=== PATIENT | male | born 1985 | race Caucasian/White ===

== ENCOUNTER 2017-12-10 06:44 | Inpatient (IN) | payer BC ==
[2017-12-10] MEDS ORDERED: Sodium Chloride 0.9% 1,000 ML IV ONE ×2 (07:24→13:15)
[2017-12-10] MEDS ORDERED: Dextrose 5%-Lactated Ringers 1,000 ML IV SCH (07:30)
[2017-12-10] MEDS ORDERED: Iopamidol 755 Mg/ML 100 ML Bottle IV ONE (09:08)
[2017-12-10] MEDS ORDERED: Diatrizoate Meglumine/Diatrizoate Sodium 37% 30 ML Bottle PO ONE (09:08)
[2017-12-10] MEDS ORDERED: Ibuprofen 600 MG Tab PO PRN (10:21)
[2017-12-10] MEDS ORDERED: Acetaminophen 325 MG Tab PO PRN (10:21)
[2017-12-10] MEDS ORDERED: Ondansetron 4 MG/2 ML SDV IV PRN (10:21)
[2017-12-10] MEDS ORDERED: Ondansetron 4 MG Tab.DIS PO PRN (10:21)
--- NOTE | 2017-12-10 11:08 | CT ---
INDICATION: 30-pound weight loss in one week, diarrhea x4-[address] ABDOMEN AND PELVIS WITH CONTRAST: Spiral 2.5-mm axial sections were obtained through the abdomen and pelvis with approximately 100 mL Isovue-370 at 1.5 mL per second, with sagittal and coronal reconstructions, 12/10/2017. No comparison study was available. Total Exam DLP = 1554.23 mGy-cm. The lower lung goddard and pleural spaces visualized appeared normal. Tiny low-density area in the right lobe of the liver, axial image #56, is of questionable significance. It could represent a small hemangioma and could be reexamined at a later date for confirmation of stability. The liver and gallbladder, adrenal glands, kidneys, spleen, and pancreas appeared essentially normal. A small nodular density at the hilum of the spleen - tail of the pancreas, most likely represents a splenule. Small pancreatic tumor is difficult to entirely exclude, but is felt to be less likely. A follow-up CT in 3 months would be confirmatory of stability of this probable splenule. Epigastric, retroperitoneal, and fairly extensive mesenteric lymphadenopathy is noted. Thickening of the wall of the colon is noted throughout, with a loss of haustration that appears fairly severe throughout the colon. No obstruction of bowel was seen. No free air was noted intraperitoneally. The appendix was well visualized on axial images #121 through #145, and appeared normal. No other organomegaly, mass lesions, or free fluid collections were identified. The prostate and urinary bladder were unremarkable. No retroperitoneal mass was seen. IMPRESSION: Findings are compatible with colitis, involving the entire colon, which may be on the basis of an infective process. Ulcerative colitis would be another possibility. Findings should be correlated clinically. There is a significant degree of mesenteric and to a lesser extent retroperitoneal lymphadenopathy. CT PELVIS: Examination of the pelvis was obtained by CT, as noted above, and revealed evidence of mesenteric lymphadenopathy and colitis with loss of haustration and thickening of the wall of the visualized colon. No other organomegaly, mass lesions, or free fluid collections were identified in the abdomen or pelvis. Report was called to Dr. Lopez at 1000 hours, 12/10/2017. [facility]
--- NOTE | 2017-12-10 11:21 | CR ---
INDICATION: 30-pound weight loss, one week of fever. Diarrhea x10 days. CHEST: PA and lateral views of the chest were obtained 12/10/2017 and revealed the heart, mediastinum, and bony thorax to be unremarkable. An active infiltrate or effusion was not identified. IMPRESSION: No active disease. MTDD
[2017-12-10] MEDS: Sodium Chloride 0.9% 1,000 ML IV SCH ×2 (11:57→18:03)
[2017-12-10] MEDS ORDERED: Sodium Chloride 0.9% 10 ML Syringe FLUSH PRN (11:59)
--- NOTE | 2017-12-10 12:57 | PCM.HP ---
H&P History of Present Illness - General Date of Service: 12/10/17 Source of Information: Patient History Limitations: Reports: No Limitations - History of Present Illness Initial Comments - Free Text/Narative: Is a 32-year-old male patient this 1 week history of fevers, chills, body aches , fatigue not sleeping at night. He is a little vomiting. Over the last month he says some abdominal cramping with some blood diarrhea. He says he had bloody diarrhea couple years ago for 3-4 weeks and then it went away. He's had no problems up until now. He denies any recent antibiotic use, travel outside the country or infectious exposures. No family history colitis. He does have a little bit of a cough but no sore throat. mid abdomen Pain Score (Numeric/FACES): 5 denies pain as of the moment Pain Score (Numeric/FACES): 0 - Related Data Allergies/Adverse Reactions: Allergies Allergy/AdvReac Type Severity Reaction Status Date / Time No Known Allergies Allergy Verified 12/10/17 07:01 Home Medications: Home Meds NK [No Known Home Meds] 12/10/17 [History] Past Medical History - Past Health History Medical/Surgical History: Denies Medical/Surgical History Gastrointestinal History: Reports: GI Bleed - Past Surgical History GI Surgical History: Reports: None Social & Family History - Family History Family Medical History: Noncontributory - Tobacco Use Smoking Status *Q: Never Smoker Second Hand Smoke Exposure: Yes - Caffeine Use Caffeine Use: Reports: Tea Other Caffeine Use: 3 cups - Alcohol Use Days Per Week of Alcohol Use: 1 Number of Drinks Per Day: 1 Total Drinks Per Week: 1 - Recreational Drug Use Recreational Drug Use: No H&P Review of Systems - Review of Systems: Review Of Systems: See Below General: Reports: Fever, Chills, Malaise, Weakness HEENT: Reports: No Symptoms Pulmonary: Reports: Cough. Denies: Shortness of Breath, Hemoptysis Cardiovascular: Reports: No Symptoms Gastrointestinal: Reports: Abdominal Pain, Diarrhea, Hematochezia Genitourinary: Reports: No Symptoms Musculoskeletal: Reports: Muscle Pain. Denies: Joint Pain Skin: Reports: No Symptoms Psychiatric: Reports: No Symptoms Neurological: Reports: No Symptoms Hematologic/Lymphatic: Reports: No Symptoms Immunologic: Reports: No Symptoms Exam - Exam Exam: See Below - Vital Signs Vital Signs: Last Vital Signs Temp 99.3 F 12/10/17 11:25 Pulse 120 H 12/10/17 08:55 Resp 18 12/10/17 11:25 BP 125/73 12/10/17 11:25 Pulse Ox 99 12/10/17 11:25 Weight: 218 lb 3.2 oz - Exam General: Alert, Oriented, Cooperative HEENT: Hearing Intact, Posterior Pharynx Clear Neck: Supple, Trachea Midline, Carotid Bruit. No: Lymphadenopathy Lungs: Clear to Auscultation, Normal Respiratory Effort. No: Crackles, Rales, Rhonchi Cardiovascular: Regular Rate, Regular Rhythm, Tachycardia. No: Systolic Murmur , Diastolic Murmur GI/Abdominal Exam: Normal Bowel Sounds, Soft, Non-Tender, Distended (Mild) Back Exam: Normal Inspection, Full Range of Motion Extremities: Normal Inspection, Non-Tender, No Pedal Edema Skin: Warm, Dry, Intact Neurological: Normal Speech Neuro Extensive - Mental Status: Alert, Oriented x3, Normal Mood/Affect, Normal Cognition, Memory Intact Psychiatric: Alert, Normal Affect, Normal Mood - Patient Data Result Diagrams: 12/10/17 07:45 12/10/17 07:45 *Q Meaningful Use (ADM) - VTE *Q VTE Criteria *Q: - Stroke *Q Stroke Criteria *Q: - AMI *Q AMI Criteria *Q: - Problem List (1) Viral syndrome SNOMED Code(s): 54603716 ICD Code: B34.9 - VIRAL INFECTION, UNSPECIFIED Status: Acute Current Visit: Yes (2) Colitis SNOMED Code(s): 59709641 ICD Code: K52.9 - NONINFECTIVE GASTROENTERITIS AND COLITIS, UNSPECIFIED Status: Acute Current Visit: Yes (3) Dehydration SNOMED Code(s): 17458051 ICD Code: E86.0 - DEHYDRATION Status: Acute Current Visit: Yes (4) Hyponatremia SNOMED Code(s): 31849518 ICD Code: E87.1 - HYPO-OSMOLALITY AND HYPONATREMIA Status: Acute Current Visit: Yes (5) Renal failure SNOMED Code(s): 52756212 ICD Code: N19 - UNSPECIFIED KIDNEY FAILURE Status: Acute Current Visit: Yes Qualifiers: Chronic kidney disease stage: stage 3 (moderate) Problem List Initiated/Reviewed/Updated: Yes Orders Last 24hrs: Active Orders 24 hr Category Date Time Status Sodium Chloride 0.9% [Saline Flush] Med 12/10/17 11:59 Active 10 ml FLUSH ASDIRECTED PRN Medication Orders Acetaminophen (Tylenol) 650 mg PO Q4H PRN PRN Reason: Pain (Mild 1-3)/fever Dextrose/Lactated Ringer's (Dextrose 5%-Lactated Ringers) 1,000 mls @ 999 mls/ hr IV ASDIRECTED [facility] Last Admin: 12/10/17 08:38 Dose: 999 mls/hr Sodium Chloride (Normal Saline) 1,000 mls @ 150 mls/hr IV ASDIRECTED [facility] Last Admin: 12/10/17 11:57 Dose: 150 mls/hr Ibuprofen (Motrin) 600 mg PO Q6H PRN PRN Reason: Pain (mild 1-3) Ondansetron HCl (Zofran) 4 mg IV Q4H PRN PRN Reason: Nausea/Vomiting Ondansetron HCl (Zofran Odt) 4 mg PO Q4H PRN PRN Reason: nausea, able to take PO Sodium Chloride (Saline Flush) 10 ml FLUSH ASDIRECTED PRN PRN Reason: Keep Vein Open Assessment/Plan Comment:: 1. I reviewed his labs, CT of abdomen and pelvis and chest x-ray. 2. Fluid resuscitation. 3. Guaiac stools. 4. Influenza swab. 5. Consult Dr. Vance for surgery regarding colitis on colonoscopy and bloody stools. 6. Repeat CBC 4 PM today to make sure his hemoglobin is not dropping. 7. Up ad gerard. 8. Regular diet for now.
[2017-12-10] MEDS: methylPREDNISolone Sodium Succinate 125 MG/2 ML SDV IVPUSH SCH (18:43)
[2017-12-11] MEDS: Sodium Chloride 0.9% 1,000 ML IV SCH ×2 (00:50→07:36)
[2017-12-11] MEDS: methylPREDNISolone Sodium Succinate 125 MG/2 ML SDV IVPUSH SCH ×2 (04:47→17:35)
--- NOTE | 2017-12-11 08:43 | CONS ---
DATE OF CONSULTATION: 12/10/2017 HISTORY OF PRESENT ILLNESS: This 32-year-old gentleman is seen in consultation from Dr. Vargas for evaluation of one-month history of bloody diarrhea. This is not associated with any abdominal pain. He has had a couple episodes of emesis in the last week. He was admitted to the hospital earlier today for body aches, fatigue, some fevers, and chills. He underwent a CT scan of the abdomen and pelvis, which shows evidence of diffuse colitis. Laboratory evaluation showed that he was anemic at 10.6 on admission and is down to 8.9 with hydration. He has had approximately five or six loose bloody stools since hospitalized. The patient lives at home and states he has been going to work for the past month. His diet at home has been some soft foods and fruits. He has had a 30- pound weight loss. He denies any urinary difficulties. The patient had a similar episode two or three years ago of bloody diarrhea that lasted about a month and was self-limited. He did not seek medical attention at that time. He is not aware of any family history of ulcerative colitis, Crohn's disease, or other colon problems. Review of his labs today showed him to be anemic as noted above. C diff is negative. PHYSICAL EXAMINATION: GENERAL: A pleasant, young male, in no distress. VITAL SIGNS: Vitals are reviewed and within normal limits. He is slightly tachycardic. ABDOMEN: Completely soft and nontender. There are no masses or hernias. ASSESSMENT: Colitis with hematochezia and anemia. PLAN: Findings were reviewed with the patient and Dr. Vargas. I am suspicious that he could have inflammatory bowel disease and would recommend starting him on steroids. He will need a colonoscopy, we will give him a couple of days to rehydrate before doing that. I will follow him while hospitalized. /[id number] JUAN/NAYELI
--- NOTE | 2017-12-11 09:32 | PCM.PN ---
- General Info Date of Service: 12/11/17 Admission Dx/Problem (Free Text): Patient states his fevers, chills and abdominal pain are gone. He still have an some diarrhea stools with bright red blood. - Patient Data Vitals - Most Recent: Last Vital Signs Temp 98.7 F 12/11/17 05:30 Pulse 96 12/11/17 01:00 Resp 18 12/11/17 01:00 BP 101/60 12/11/17 01:00 Pulse Ox 97 12/11/17 01:00 Weight - Most Recent: 218 lb 3.2 oz I&O - Last 24 Hours: Intake & Output 12/10/17 12/11/17 12/11/17 22:59 06:59 14:59 Intake Total 2065 964 Output Total 550 1000 Balance 1515 -36 Lab Results Last 24 Hours: Laboratory Results - last 24 hr 12/10/17 12/11/17 12/11/17 Range/Units 16:15 06:15 06:15 WBC 8.7 7.6 (4.5-12.0) X10-3/uL RBC 3.84 L 3.71 L (4.30-5.75) x10(6)uL Hgb 8.9 L 8.5 L (11.5-15.5) g/dL Hct 28.0 L 27.3 L (30.0-51.3) % MCV 73.0 L 73.5 L (80-96) fL MCH 23.1 L 23.0 L (27.7-33.6) pg MCHC 31.7 L 31.3 L (32.2-35.4) g/dL RDW 14.5 14.9 (11.5-15.5) % Plt Count 456 H 411 H (125-369) X10(3)uL MPV 7.5 7.4 (7.4-10.4) fL Neut % (Auto) 70.1 (46-82) % Lymph % (Auto) 19.2 (13-37) % [place] % (Auto) 10.6 (4-12) % Eos % (Auto) 0 L (1.0-5.0) % Baso % (Auto) 0 (0-2) % Neut # (Auto) 6.1 (1.6-8.3) # Lymph # (Auto) 1.7 (0.6-5.0) # [place] # (Auto) 0.9 (0.0-1.3) # Eos # (Auto) 0.0 (0.0-0.8) # Baso # (Auto) 0.0 (0.0-0.2) # Add Manual Diff Yes Neutrophils % (Manual) 81 (46-82) % Band Neutrophils % 3 (0-6) % Lymphocytes % (Manual) 14 (13-37) % Monocytes % (Manual) 2 L (4-12) % Microcytosis Moderate H Sodium 137 (135-145) mmol/L Potassium 3.9 (3.5-5.3) mmol/L Chloride 103 D (100-110) mmol/L Carbon Dioxide 23 (21-32) mmol/L BUN 8 (7-18) mg/dL Creatinine 0.9 (0.70-1.30) mg/dL Est Cr Clr Drug Dosing 128.14 mL/min Estimated GFR (MDRD) > 60 (>60) BUN/Creatinine Ratio 8.9 L (9-20) Glucose 144 H (80-116) mg/dL Calcium 8.1 L (8.6-10.2) mg/dL Total Bilirubin 0.4 (0.1-1.3) mg/dL AST 22 D (5-25) IU/L ALT 25 (12-36) U/L Alkaline Phosphatase 56 (56-112) IU/L Total Protein 6.2 (6.0-8.0) g/dL Albumin 1.9 L (3.5-5.2) g/dL Globulin 4.3 g/dL Albumin/Globulin Ratio 0.4 Med Orders - Current: Current Medications Acetaminophen (Tylenol) 650 mg PO Q4H PRN PRN Reason: Pain (Mild 1-3)/fever Potassium Chloride/Dextrose/Sod Cl (D5 1/2 Ns W/ 20 Meq/L Kcl) 1,000 mls @ 100 mls/hr IV ASDIRECTED [facility]ER Ibuprofen (Motrin) 600 mg PO Q6H PRN PRN Reason: Pain (mild 1-3) Methylprednisolone Sodium Succinate (Solu-Medrol) 125 mg IVPUSH Q12H [facility]ENN[facility]ER Last Admin: 12/11/17 04:47 Dose: 125 mg Ondansetron HCl (Zofran) 4 mg IV Q4H PRN PRN Reason: Nausea/Vomiting Ondansetron HCl (Zofran Odt) 4 mg PO Q4H PRN PRN Reason: nausea, able to take PO Sodium Chloride (Saline Flush) 10 ml FLUSH ASDIRECTED PRN PRN Reason: Keep Vein Open Last Admin: 12/10/17 11:56 Dose: 10 ml Discontinued Medications Diatrizoate Meglum/Diatrizoate Sod (Gastrografin 37%) 30 ml PO . DIRECTED ONE Stop: 12/10/17 09:09 Last Admin: 12/10/17 09:16 Dose: 30 ml Dextrose/Lactated Ringer's (Dextrose 5%-Lactated Ringers) 1,000 mls @ 999 mls/ hr IV ASDIRECTED [facility] Last Admin: 12/10/17 08:38 Dose: 999 mls/hr Sodium Chloride (Normal Saline) 1,000 mls @ 999 mls/hr IV .BOLUS ONE Stop: 12/10/17 08:24 Last Admin: 12/10/17 07:35 Dose: 999 mls/hr Sodium Chloride (Normal Saline) 1,000 mls @ 150 mls/hr IV ASDIRECTED [facility] Last Admin: 12/11/17 07:36 Dose: 150 mls/hr Sodium Chloride (Normal Saline) 1,000 mls @ 999 mls/hr IV .BOLUS ONE Stop: 12/10/17 14:15 Last Admin: 12/10/17 13:35 Dose: 999 mls/hr Influenza Virus Vaccine (Fluzone Quad [id number]) 60 mcg IM .ONCE ONE Stop: 12/10/17 11:46 Iopamidol (Isovue-370 (76%)) 100 ml IV ONETIME ONE Stop: 12/10/17 09:09 Last Admin: 12/10/17 09:16 Dose: 100 ml - Exam General: Oriented Lungs: Clear to Auscultation, Normal Respiratory Effort GI/Abdominal Exam: Normal Bowel Sounds, Soft, Non-Tender, No Organomegaly, No Distention, No Mass - Problem List & Annotations (1) Colitis SNOMED Code(s): 22812212 Code(s): K52.9 - NONINFECTIVE GASTROENTERITIS AND COLITIS, UNSPECIFIED Status: Acute Current Visit: Yes (2) Dehydration SNOMED Code(s): 60567005 Code(s): E86.0 - DEHYDRATION Status: Acute Current Visit: Yes (3) Hyponatremia SNOMED Code(s): 04068061 Code(s): E87.1 - HYPO-OSMOLALITY AND HYPONATREMIA Status: Acute Current Visit: Yes (4) Renal failure SNOMED Code(s): 12776621 Code(s): N19 - UNSPECIFIED KIDNEY FAILURE Status: Acute Current Visit: Yes Qualifiers: Chronic kidney disease stage: stage 3 (moderate) - Problem List Review Problem List Initiated/Reviewed/Updated: Yes - My Orders Last 24 Hours: My Active Orders 12/10/17 11:59 Sodium Chloride 0.9% [Saline Flush] 10 ml FLUSH ASDIRECTED PRN 12/10/17 12:59 Consult to Physician [CONS] Routine 12/10/17 17:00 methylPREDNISolone Sod Succ [Solu-MEDROL] 125 mg IVPUSH Q12H 12/10/17 17:40 Intake and Output [RC] 06,14,22 12/11/17 09:30 D5 1/2 NS w/ 20 mEq/L KCl 1,000 ml IV ASDIRECTED 12/11/17 16:00 HEMOGLOBIN/HEMATOCRIT,HH [HEME] Routine - Plan Plan:: 1. Change IV fluids D5 half-normal the 100 mL an hour. 2. I did discuss pros and cons of blood transfusions. His hemoglobin is 8.5 this morning so hold off any blood transfusion at this time. 3. Recheck hemoglobin today at 4 PM. 4. Continue IV steroids. 5. Hyponatremia and renal failure are now corrected.
--- NOTE | 2017-12-11 10:06 | PCM.PN ---
- General Info Date of Service: 12/11/17 Functional Status: Reports: Pain Controlled, Tolerating Diet - Review of Systems General: Reports: No Symptoms Gastrointestinal: Reports: No Symptoms, Hematochezia (still having loose bloody stools) - Patient Data Vitals - Most Recent: Last Vital Signs Temp 98.7 F 12/11/17 05:30 Pulse 96 12/11/17 01:00 Resp 18 12/11/17 01:00 BP 101/60 12/11/17 01:00 Pulse Ox 97 12/11/17 01:00 Weight - Most Recent: 98.974 kg I&O - Last 24 Hours: Intake & Output 12/10/17 12/11/17 12/11/17 22:59 06:59 14:59 Intake Total 2065 964 Output Total 550 1000 Balance 1515 -36 Lab Results Last 24 Hours: Laboratory Results - last 24 hr 12/10/17 12/11/17 12/11/17 Range/Units 16:15 06:15 06:15 WBC 8.7 7.6 (4.5-12.0) X10-3/uL RBC 3.84 L 3.71 L (4.30-5.75) x10(6)uL Hgb 8.9 L 8.5 L (11.5-15.5) g/dL Hct 28.0 L 27.3 L (30.0-51.3) % MCV 73.0 L 73.5 L (80-96) fL MCH 23.1 L 23.0 L (27.7-33.6) pg MCHC 31.7 L 31.3 L (32.2-35.4) g/dL RDW 14.5 14.9 (11.5-15.5) % Plt Count 456 H 411 H (125-369) X10(3)uL MPV 7.5 7.4 (7.4-10.4) fL Neut % (Auto) 70.1 (46-82) % Lymph % (Auto) 19.2 (13-37) % [place] % (Auto) 10.6 (4-12) % Eos % (Auto) 0 L (1.0-5.0) % Baso % (Auto) 0 (0-2) % Neut # (Auto) 6.1 (1.6-8.3) # Lymph # (Auto) 1.7 (0.6-5.0) # [place] # (Auto) 0.9 (0.0-1.3) # Eos # (Auto) 0.0 (0.0-0.8) # Baso # (Auto) 0.0 (0.0-0.2) # Add Manual Diff Yes Neutrophils % (Manual) 81 (46-82) % Band Neutrophils % 3 (0-6) % Lymphocytes % (Manual) 14 (13-37) % Monocytes % (Manual) 2 L (4-12) % Microcytosis Moderate H Sodium 137 (135-145) mmol/L Potassium 3.9 (3.5-5.3) mmol/L Chloride 103 D (100-110) mmol/L Carbon Dioxide 23 (21-32) mmol/L BUN 8 (7-18) mg/dL Creatinine 0.9 (0.70-1.30) mg/dL Est Cr Clr Drug Dosing 128.14 mL/min Estimated GFR (MDRD) > 60 (>60) BUN/Creatinine Ratio 8.9 L (9-20) Glucose 144 H (80-116) mg/dL Calcium 8.1 L (8.6-10.2) mg/dL Total Bilirubin 0.4 (0.1-1.3) mg/dL AST 22 D (5-25) IU/L ALT 25 (12-36) U/L Alkaline Phosphatase 56 (56-112) IU/L Total Protein 6.2 (6.0-8.0) g/dL Albumin 1.9 L (3.5-5.2) g/dL Globulin 4.3 g/dL Albumin/Globulin Ratio 0.4 Med Orders - Current: Current Medications Acetaminophen (Tylenol) 650 mg PO Q4H PRN PRN Reason: Pain (Mild 1-3)/fever Potassium Chloride/Dextrose/Sod Cl (D5 1/2 Ns W/ 20 Meq/L Kcl) 1,000 mls @ 100 mls/hr IV Q10H [facility] Ibuprofen (Motrin) 600 mg PO Q6H PRN PRN Reason: Pain (mild 1-3) Methylprednisolone Sodium Succinate (Solu-Medrol) 125 mg IVPUSH Q12H [facility]ENN[facility]ER Last Admin: 12/11/17 04:47 Dose: 125 mg Ondansetron HCl (Zofran) 4 mg IV Q4H PRN PRN Reason: Nausea/Vomiting Ondansetron HCl (Zofran Odt) 4 mg PO Q4H PRN PRN Reason: nausea, able to take PO Sodium Chloride (Saline Flush) 10 ml FLUSH ASDIRECTED PRN PRN Reason: Keep Vein Open Last Admin: 12/10/17 11:56 Dose: 10 ml Discontinued Medications Diatrizoate Meglum/Diatrizoate Sod (Gastrografin 37%) 30 ml PO . DIRECTED ONE Stop: 12/10/17 09:09 Last Admin: 12/10/17 09:16 Dose: 30 ml Dextrose/Lactated Ringer's (Dextrose 5%-Lactated Ringers) 1,000 mls @ 999 mls/ hr IV ASDIRECTED [facility] Last Admin: 12/10/17 08:38 Dose: 999 mls/hr Sodium Chloride (Normal Saline) 1,000 mls @ 999 mls/hr IV .BOLUS ONE Stop: 12/10/17 08:24 Last Admin: 12/10/17 07:35 Dose: 999 mls/hr Sodium Chloride (Normal Saline) 1,000 mls @ 150 mls/hr IV ASDIRECTED [facility] Last Admin: 12/11/17 07:36 Dose: 150 mls/hr Sodium Chloride (Normal Saline) 1,000 mls @ 999 mls/hr IV .BOLUS ONE Stop: 12/10/17 14:15 Last Admin: 12/10/17 13:35 Dose: 999 mls/hr Influenza Virus Vaccine (Fluzone Quad [id number]) 60 mcg IM .ONCE ONE Stop: 12/10/17 11:46 Iopamidol (Isovue-370 (76%)) 100 ml IV ONETIME ONE Stop: 12/10/17 09:09 Last Admin: 12/10/17 09:16 Dose: 100 ml - Exam General: Alert, Oriented GI/Abdominal Exam: Soft, Non-Tender, No Distention - Problem List Review Problem List Initiated/Reviewed/Updated: Yes - Assessment Assessment:: Hematochezia - Plan Plan:: 1. Change IV fluids D5 half-normal the 100 mL an hour. 2. I did discuss pros and cons of blood transfusions. His hemoglobin is 8.5 this morning so hold off any blood transfusion at this time. 3. Recheck hemoglobin today at 4 PM. 4. Continue IV steroids. 5. Hyponatremia and renal failure are now corrected.
[2017-12-11] MEDS: D5 1/2 NS w/ 20 mEq/L KCl 1,000 ML IV SCH ×2 (11:58→21:59)
--- NOTE | 2017-12-11 12:33 | ER ---
DATE SEEN: 12/10/2017 TIME SEEN: The patient was seen at approximately 0710 hours. HISTORY OF PRESENT ILLNESS: This 32-year-old man comes in with a history of bloody diarrhea for approximately a week. He notes his weight has dropped from 250 pounds to 220 pounds. He also notes he has been struggling with bugs in his room. He has been spraying with Raid for a month in the apartment where he lives and nurses note bugs that have come off him and also these have been picked up and placed in sample bags. He has not been eating very much. He has had diarrhea about four times per day and vomiting once or twice per day. He did eat yesterday. He denies stress. He works at [employer], in the [employer]. He has not been on antibiotics recently. No history of clostridium difficile. He lives in [place]. Drinking more than 1-2 drinks of alcohol per week. No history of hepatitis, liver jaundice, any sexual impropriety surgery, GERD, appendectomy, or other abdominal surgeries. The patient is single. No change in his food. Sometimes buys food at the store and sometimes makes his own meals. No history of pancreatitis. ALLERGIES: None. MEDICATIONS: None. PAST MEDICAL HISTORY: Noncontributory. See HPI above. PHYSICAL EXAMINATION: VITAL SIGNS: 133 heart rate, respirations 18, oxygen saturation 99%, blood pressure 130/71, and 39.2 degrees centigrade temperature, 100.244 kg. BMI 30 kg/m2. GENERAL: A fellow who does not look like he has lost weight. He is slightly overweight, perhaps he has lost weight, seems difficult to see that on the patient's observation he has lost 30 pounds. HEENT: PERRLA intact. Pharynx without abnormality. Mild macroglossia. Mucosa is dry. No cervical adenopathy, thyromegaly, or masses in neck. LUNGS: Without rales, rhonchi, or wheezes. HEART: S1, S2. No murmur. CHEST: Chest wall nontender. No arthritis noted or tenderness of chest wall. GI: Palpation of abdomen, mild discomfort. Not extensive. No rebound. No guarding. Bowel sounds increased. No CVA percussion tenderness. EXTREMITIES: Without abnormality. No edema. GENITALIA: Negative without lice noted there. There are some lice noted in his scalp. Samples obtained. RECTAL: Not performed. IMAGING: CAT scan of the abdomen reveals colitis. LABORATORY DATA: White count is 9700 with PMNs 70, lymphocytes 20, hemoglobin is 10.6, microcytic hypochromic anemia noted on baseline RBC indices. Sodium is 128, potassium 3.9, chloride 93, bicarb 23, BUN 17, creatinine 1.5. He has mild AST elevation, 30. Also reactive glucose elevation of 139. ASSESSMENT: 1. Colitis, rule out ulcerative colitis. 2. Rule out infectious colitis. 3. Weight loss, probably secondary to dehydration and also diarrhea. 4. Hematochezia. 5. Low albumin secondary to weight loss and also his hematochezia. 6. AST elevation possibly secondary to spraying his apartment with Raid for a month to eradicate the bedbugs/lice. 7. Hyponatremia, hypochloremia with normal potassium. 8. Reactive glucose elevation. GFR is 54 and is normal. The patient will be admitted. The status discussed with Dr. Vargas. Additionally, the CAT scan has moderate mesenteric nodes noted in the CAT scan. No sign of obstruction. /[id number] GUZMAN/NAYELI NATHAN
[2017-12-12] MEDS: methylPREDNISolone Sodium Succinate 125 MG/2 ML SDV IVPUSH SCH (05:29)
[2017-12-12] MEDS: D5 1/2 NS w/ 20 mEq/L KCl 1,000 ML IV SCH ×2 (08:06→20:50)
--- NOTE | 2017-12-12 08:14 | PCM.PN ---
- General Info Date of Service: 12/12/17 Admission Dx/Problem (Free Text): Patient has bloody diarrhea that's the same. He denies fevers, chills, abdominal pain, nausea or vomiting. - Patient Data Vitals - Most Recent: Last Vital Signs Temp 98.1 F 12/12/17 08:00 Pulse 86 12/12/17 08:00 Resp 22 H 12/12/17 08:00 BP 121/80 12/12/17 08:00 Pulse Ox 94 L 12/12/17 08:00 Weight - Most Recent: 218 lb 3.2 oz I&O - Last 24 Hours: Intake & Output 12/11/17 12/12/17 12/12/17 22:59 06:59 14:59 Intake Total 1956 835 160 Output Total 230 1505 Balance 1726 -670 160 Lab Results Last 24 Hours: Laboratory Results - last 24 hr 12/11/17 12/12/17 Range/Units 16:05 06:02 Hgb 9.2 L 8.9 L (11.5-15.5) g/dL Hct 29.1 L 28.5 L (30.0-51.3) % Med Orders - Current: Current Medications Acetaminophen (Tylenol) 650 mg PO Q4H PRN PRN Reason: Pain (Mild 1-3)/fever Potassium Chloride/Dextrose/Sod Cl (D5 1/2 Ns W/ 20 Meq/L Kcl) 1,000 mls @ 100 mls/hr IV Q10H [facility] Last Admin: 12/12/17 08:06 Dose: 100 mls/hr Ibuprofen (Motrin) 600 mg PO Q6H PRN PRN Reason: Pain (mild 1-3) Magnesium Citrate (Citrate Of Magnesia) 296 ml PO ONETIME ONE Stop: 12/12/17 12:01 Methylprednisolone Sodium Succinate (Solu-Medrol) 125 mg IVPUSH Q12H [facility] Last Admin: 12/12/17 05:29 Dose: 125 mg Ondansetron HCl (Zofran) 4 mg IV Q4H PRN PRN Reason: Nausea/Vomiting Ondansetron HCl (Zofran Odt) 4 mg PO Q4H PRN PRN Reason: nausea, able to take PO Sodium Chloride (Saline Flush) 10 ml FLUSH ASDIRECTED PRN PRN Reason: Keep Vein Open Last Admin: 12/10/17 11:56 Dose: 10 ml Discontinued Medications Diatrizoate Meglum/Diatrizoate Sod (Gastrografin 37%) 30 ml PO . DIRECTED ONE Stop: 12/10/17 09:09 Last Admin: 12/10/17 09:16 Dose: 30 ml Dextrose/Lactated Ringer's (Dextrose 5%-Lactated Ringers) 1,000 mls @ 999 mls/ hr IV ASDIRECTED [facility] Last Admin: 12/10/17 08:38 Dose: 999 mls/hr Sodium Chloride (Normal Saline) 1,000 mls @ 999 mls/hr IV .BOLUS ONE Stop: 12/10/17 08:24 Last Admin: 12/10/17 07:35 Dose: 999 mls/hr Sodium Chloride (Normal Saline) 1,000 mls @ 150 mls/hr IV ASDIRECTED [facility] Last Admin: 12/11/17 07:36 Dose: 150 mls/hr Sodium Chloride (Normal Saline) 1,000 mls @ 999 mls/hr IV .BOLUS ONE Stop: 12/10/17 14:15 Last Admin: 12/10/17 13:35 Dose: 999 mls/hr Influenza Virus Vaccine (Fluzone Quad [id number]) 60 mcg IM .ONCE ONE Stop: 12/10/17 11:46 Iopamidol (Isovue-370 (76%)) 100 ml IV ONETIME ONE Stop: 12/10/17 09:09 Last Admin: 12/10/17 09:16 Dose: 100 ml - Exam General: Alert, Oriented, Cooperative Lungs: Normal Respiratory Effort GI/Abdominal Exam: Normal Bowel Sounds, Soft, Non-Tender, No Organomegaly, No Distention, No Abnormal Bruit, No Mass - Problem List & Annotations (1) Colitis SNOMED Code(s): 18689859 Code(s): K52.9 - NONINFECTIVE GASTROENTERITIS AND COLITIS, UNSPECIFIED Status: Acute Current Visit: Yes (2) Dehydration SNOMED Code(s): 95328693 Code(s): E86.0 - DEHYDRATION Status: Acute Current Visit: Yes (3) Hyponatremia SNOMED Code(s): 60471421 Code(s): E87.1 - HYPO-OSMOLALITY AND HYPONATREMIA Status: Acute Current Visit: Yes (4) Renal failure SNOMED Code(s): 23850531 Code(s): N19 - UNSPECIFIED KIDNEY FAILURE Status: Acute Current Visit: Yes Qualifiers: Chronic kidney disease stage: stage 3 (moderate) - Problem List Review Problem List Initiated/Reviewed/Updated: Yes - Plan Plan:: 1. Patient maintaining his hemoglobin. 2. Decrease Solu-Medrol 125 mg IV once a day. 3. Dr. Vance discussed starting a prep for a colonoscopy that will be done in a.m. Please contact Dr. Vance about the prep.
[2017-12-12] MEDS ORDERED: Magnesium Citrate Solution 296 ML Bottle PO ONE (12:00)
[2017-12-12] MEDS: FLU Vacc QS 2017-18 (36mos UP)/PF 60 MCG/0.5 ML Syringe IM ONE ×2 (14:28→14:32)
[2017-12-13] MEDS: D5 1/2 NS w/ 20 mEq/L KCl 1,000 ML IV SCH ×2 (06:20→11:20)
--- NOTE | 2017-12-13 08:40 | PCM.PN ---
- General Info Date of Service: 12/13/17 Admission Dx/Problem (Free Text): Patient states bleeding in his stool is improving. He has no fevers, chills or abdominal pain. Eating and drinking fine. - Patient Data Vitals - Most Recent: Last Vital Signs Temp 97.8 F 12/13/17 04:00 Pulse 78 12/13/17 04:00 Resp 16 12/13/17 04:00 BP 116/66 12/13/17 04:00 Pulse Ox 96 12/13/17 04:00 Weight - Most Recent: 218 lb 3.2 oz I&O - Last 24 Hours: Intake & Output 12/12/17 12/13/17 12/13/17 22:59 06:59 14:59 Intake Total 1300 1481 Output Total 450 1550 Balance 850 -69 Med Orders - Current: Current Medications Acetaminophen (Tylenol) 650 mg PO Q4H PRN PRN Reason: Pain (Mild 1-3)/fever Potassium Chloride/Dextrose/Sod Cl (D5 1/2 Ns W/ 20 Meq/L Kcl) 1,000 mls @ 100 mls/hr IV Q10H [facility] Last Admin: 12/13/17 06:20 Dose: 100 mls/hr Ibuprofen (Motrin) 600 mg PO Q6H PRN PRN Reason: Pain (mild 1-3) Methylprednisolone Sodium Succinate (Solu-Medrol) 125 mg IVPUSH DAILY [facility] Last Admin: 12/13/17 08:25 Dose: 125 mg Ondansetron HCl (Zofran) 4 mg IV Q4H PRN PRN Reason: Nausea/Vomiting Ondansetron HCl (Zofran Odt) 4 mg PO Q4H PRN PRN Reason: nausea, able to take PO Sodium Chloride (Saline Flush) 10 ml FLUSH ASDIRECTED PRN PRN Reason: Keep Vein Open Last Admin: 12/10/17 11:56 Dose: 10 ml Discontinued Medications Diatrizoate Meglum/Diatrizoate Sod (Gastrografin 37%) 30 ml PO . DIRECTED ONE Stop: 12/10/17 09:09 Last Admin: 12/10/17 09:16 Dose: 30 ml Dextrose/Lactated Ringer's (Dextrose 5%-Lactated Ringers) 1,000 mls @ 999 mls/ hr IV ASDIRECTED [facility] Last Admin: 12/10/17 08:38 Dose: 999 mls/hr Sodium Chloride (Normal Saline) 1,000 mls @ 999 mls/hr IV .BOLUS ONE Stop: 12/10/17 08:24 Last Admin: 12/10/17 07:35 Dose: 999 mls/hr Sodium Chloride (Normal Saline) 1,000 mls @ 150 mls/hr IV ASDIRECTED [facility] Last Admin: 12/11/17 07:36 Dose: 150 mls/hr Sodium Chloride (Normal Saline) 1,000 mls @ 999 mls/hr IV .BOLUS ONE Stop: 12/10/17 14:15 Last Admin: 12/10/17 13:35 Dose: 999 mls/hr Influenza Virus Vaccine (Fluzone Quad 3946-4881) 60 mcg IM .ONCE ONE Stop: 12/10/17 11:46 Last Admin: 12/12/17 14:32 Dose: 60 mcg Iopamidol (Isovue-370 (76%)) 100 ml IV ONETIME ONE Stop: 12/10/17 09:09 Last Admin: 12/10/17 09:16 Dose: 100 ml Magnesium Citrate (Citrate Of Magnesia) 296 ml PO ONETIME ONE Stop: 12/12/17 12:01 Last Admin: 12/12/17 13:15 Dose: 296 ml Methylprednisolone Sodium Succinate (Solu-Medrol) 125 mg IVPUSH Q12H [facility] Last Admin: 12/12/17 05:29 Dose: 125 mg - Exam General: Alert, Oriented, Cooperative Lungs: Normal Respiratory Effort GI/Abdominal Exam: Normal Bowel Sounds, Soft, Non-Tender, No Organomegaly, No Distention, No Abnormal Bruit, No Mass - Problem List & Annotations (1) Colitis SNOMED Code(s): 35804517 Code(s): K52.9 - NONINFECTIVE GASTROENTERITIS AND COLITIS, UNSPECIFIED Status: Acute Current Visit: Yes (2) Dehydration SNOMED Code(s): 88016716 Code(s): E86.0 - DEHYDRATION Status: Acute Current Visit: Yes (3) Hyponatremia SNOMED Code(s): 15198799 Code(s): E87.1 - HYPO-OSMOLALITY AND HYPONATREMIA Status: Acute Current Visit: Yes (4) Renal failure SNOMED Code(s): 52588230 Code(s): N19 - UNSPECIFIED KIDNEY FAILURE Status: Acute Current Visit: Yes Qualifiers: Chronic kidney disease stage: stage 3 (moderate) - Problem List Review Problem List Initiated/Reviewed/Updated: Yes - My Orders Last 24 Hours: My Active Orders 12/13/17 09:00 methylPREDNISolone Sod Succ [Solu-MEDROL] 125 mg IVPUSH DAILY 12/14/17 05:11 HEMOGLOBIN/HEMATOCRIT,HH [HEME] AM - Assessment Assessment:: 1. Colonoscopy today. 2. Anticipate discharge on prednisone if colonoscopy goes okay. This will be dependent on Dr. Vance assessment. - Plan Plan:: 1. Patient maintaining his hemoglobin. 2. Decrease Solu-Medrol 125 mg IV once a day. 3. Dr. Vance discussed starting a prep for a colonoscopy that will be done in a.m. Please contact Dr. Vance about the prep.
[2017-12-13] MEDS ORDERED: methylPREDNISolone Sodium Succinate 125 MG/2 ML SDV IVPUSH SCH (09:00)
[2017-12-13] MEDS ORDERED: Lidocaine 2% 100 MG/5 ML Syringe IVPUSH ONE (10:00)
[2017-12-13] MEDS ORDERED: Propofol 200 MG/20 ML SDV IV ONE (10:00)
[2017-12-13] MEDS ORDERED: Ondansetron 4 MG/2 ML SDV IVPUSH ONE (10:00)
--- NOTE | 2017-12-13 10:51 | PCM.OPNOTE ---
- General Post-Op/Procedure Note Date of Surgery/Procedure: 12/13/17 Operative Procedure(s): Colonoscopy with multiple Bx's Findings: Mod-Severe Colitis Pre Op Diagnosis: Hematochezia Post-Op Diagnosis: Same Anesthesia Technique: MAC Primary Surgeon: Fly Vance Pathology: Multiple bx's EBL in mLs: 2 Complications: None Condition: Good Free Text/Narrative:: Intake & Output 12/12/17 12/13/17 12/13/17 22:59 06:59 14:59 Intake Total 1300 1481 Output Total 450 1550 Balance 850 -69
--- NOTE | 2017-12-13 10:59 | PCM.DCSUM1 ---
Discharge Summary - Hospital Course Free Text/Narrative:: Spelled course-patient was admitted for aggressive hydration. Discussed transfusions with the patient but never had a really dropped his hemoglobin into the 8s and he maintained it. Dr. Vance consult a and felt he probably had ulcerative colitis. Set up for a scope a few days later. Agents hyponatremia and dehydration resolved. Decrease fluids and flutter clear liquids and he did well. He had a bowel prep and had a colonoscopy that showed severe colitis. Patient was put on Solu-Medrol twice a day and then weaned once a day. He will go home on prednisone 40 mg a day until he sees Dr. Vance. Brief History: Is a 32-year-old male patient this 1 week history of fevers, chills, body aches, fatigue not sleeping at night. He is a little vomiting. Over the last month he says some abdominal cramping with some blood diarrhea. He says he had bloody diarrhea couple years ago for 3-4 weeks and then it went away. He's had no problems up until now. He denies any recent antibiotic use, travel outside the country or infectious exposures. No family history colitis. He does have a little bit of a cough but no sore throat. - Discharge Data Discharge Date: 12/13/17 Discharge Disposition: Home, Self-Care 01 Condition: Good - Discharge Diagnosis/Problem(s) (1) Colitis SNOMED Code(s): 03192904 ICD Code: K52.9 - NONINFECTIVE GASTROENTERITIS AND COLITIS, UNSPECIFIED Status: Acute Current Visit: Yes (2) Dehydration SNOMED Code(s): 05805327 ICD Code: E86.0 - DEHYDRATION Status: Acute Current Visit: Yes (3) Hyponatremia SNOMED Code(s): 36281295 ICD Code: E87.1 - HYPO-OSMOLALITY AND HYPONATREMIA Status: Acute Current Visit: Yes (4) Renal failure SNOMED Code(s): 67410471 ICD Code: N19 - UNSPECIFIED KIDNEY FAILURE Status: Acute Current Visit: Yes Qualifiers: Chronic kidney disease stage: stage 3 (moderate) - Patient Summary/Data Operative Procedure(s) Performed: Colonoscopy with multiple Bx's - Patient Instructions Diet: Regular Diet as Tolerated Activity: As Tolerated Driving: May Drive Today Showering/Bathing: May Shower Notify Provider of: Nausea and/or Vomiting Other/Special Instructions: 1. Recheck with Dr. Vance in one week. - Discharge Plan Prescriptions/Med Rec: predniSONE [Prednisone] 40 mg PO DAILY #40 tablet Home Medications: Home Meds Multivitamins with Zinc [Stress Formula with Zinc] 1 tab PO DAILY 12/10/17 [ History] predniSONE [Prednisone] 40 mg PO DAILY #40 tablet 12/13/17 [Rx] Patient Handouts: Colonoscopy, Adult, [id number], Colitis Forms: ED Department Discharge Referrals: PCP,None [Primary Care Provider] - - Discharge Summary/Plan Comment DC Time >30 min.: No - Patient Data Vitals - Most Recent: Last Vital Signs Temp 97.8 F 12/13/17 04:00 Pulse 78 12/13/17 04:00 Resp 16 12/13/17 04:00 BP 116/66 12/13/17 04:00 Pulse Ox 96 12/13/17 04:00 Weight - Most Recent: 218 lb 3.2 oz I&O - Last 24 hours: Intake & Output 12/12/17 12/13/17 12/13/17 22:59 06:59 14:59 Intake Total 1300 1481 Output Total 450 1550 Balance 850 -69 Med Orders - Current: Current Medications Acetaminophen (Tylenol) 650 mg PO Q4H PRN PRN Reason: Pain (Mild 1-3)/fever Potassium Chloride/Dextrose/Sod Cl (D5 1/2 Ns W/ 20 Meq/L Kcl) 1,000 mls @ 100 mls/hr IV Q10H [facility] Last Admin: 12/13/17 06:20 Dose: 100 mls/hr Ibuprofen (Motrin) 600 mg PO Q6H PRN PRN Reason: Pain (mild 1-3) Methylprednisolone Sodium Succinate (Solu-Medrol) 125 mg IVPUSH DAILY [facility] Last Admin: 12/13/17 08:25 Dose: 125 mg Ondansetron HCl (Zofran) 4 mg IV Q4H PRN PRN Reason: Nausea/Vomiting Ondansetron HCl (Zofran Odt) 4 mg PO Q4H PRN PRN Reason: nausea, able to take PO Sodium Chloride (Saline Flush) 10 ml FLUSH ASDIRECTED PRN PRN Reason: Keep Vein Open Last Admin: 12/10/17 11:56 Dose: 10 ml Discontinued Medications Diatrizoate Meglum/Diatrizoate Sod (Gastrografin 37%) 30 ml PO . DIRECTED ONE Stop: 12/10/17 09:09 Last Admin: 12/10/17 09:16 Dose: 30 ml Dextrose/Lactated Ringer's (Dextrose 5%-Lactated Ringers) 1,000 mls @ 999 mls/ hr IV ASDIRECTED [facility] Last Admin: 12/10/17 08:38 Dose: 999 mls/hr Sodium Chloride (Normal Saline) 1,000 mls @ 999 mls/hr IV .BOLUS ONE Stop: 12/10/17 08:24 Last Admin: 12/10/17 07:35 Dose: 999 mls/hr Sodium Chloride (Normal Saline) 1,000 mls @ 150 mls/hr IV ASDIRECTED [facility] Last Admin: 12/11/17 07:36 Dose: 150 mls/hr Sodium Chloride (Normal Saline) 1,000 mls @ 999 mls/hr IV .BOLUS ONE Stop: 12/10/17 14:15 Last Admin: 12/10/17 13:35 Dose: 999 mls/hr Influenza Virus Vaccine (Fluzone Quad 6638-7547) 60 mcg IM .ONCE ONE Stop: 12/10/17 11:46 Last Admin: 12/12/17 14:32 Dose: 60 mcg Iopamidol (Isovue-370 (76%)) 100 ml IV ONETIME ONE Stop: 12/10/17 09:09 Last Admin: 12/10/17 09:16 Dose: 100 ml Magnesium Citrate (Citrate Of Magnesia) 296 ml PO ONETIME ONE Stop: 12/12/17 12:01 Last Admin: 12/12/17 13:15 Dose: 296 ml Methylprednisolone Sodium Succinate (Solu-Medrol) 125 mg IVPUSH Q12H [facility] Last Admin: 12/12/17 05:29 Dose: 125 mg *Q Meaningful Use (DIS) - VTE *Q VTE Criteria *Q: - Stroke *Q Stroke Criteria *Q: - AMI *Q AMI Criteria *Q:
--- NOTE | 2017-12-13 17:27 | OR ---
DATE OF OPERATION: 12/13/2017 SURGEON: Fly Vance MD PREOPERATIVE DIAGNOSES: 1. Hematochezia. 2. Colitis. POSTOPERATIVE DIAGNOSIS: [id number] pancolitis. PROCEDURE PERFORMED: Colonoscopy with multiple biopsies. ANESTHESIA: IV sedation. PROCEDURE IN DETAIL: The patient was brought to the procedure room, where he was placed in a left side and IV sedation administered. Digital rectal exam was performed, which was normal. The colonoscope was inserted and advanced to the level of the cecum without difficulty. Cecal position was confirmed by identifying the appendiceal lumen and ileocecal valve. The terminal ilium was intubated for approximately 20 cm. Mucosal linings looked normal, photographs were taken. Biopsies of the terminal ilium were taken. There was no evidence of Crohn disease. The scope was withdrawn back into the colon. There is a diffuse colitis from the cecum to the distal rectum, moderate on the right side, and more severe in the transverse and left side. All segments of the colon were biopsied and photographs were taken. Retroflexion of the rectum appears normal. Air was removed and the scope withdrawn. The patient tolerated the procedure well. Findings are most consistent with moderately severe ulcerative colitis. Rectum is completely involved. Terminal ilium is spared. I will have him remain on prednisone 40 mg daily and follow up with me next week in clinic for review of biopsies. /[id number] JUAN/NAYELI
== END 2017-12-13 14:27 | disposition home or self-care (01) | DRG 245 ==
LOC: FB.ED 06:44 → FB.MS 10:38 → OBSVTOIN 12-11 09:32
PROVIDERS: ADMIT Family Medicine; ATTEND Family Medicine
PROC: 0DDE8ZX Extraction of Large Intestine, Via Natural or Artificial Opening Endoscopic, Diagnostic (ICD-10-PCS; principal; 2017-12-13)
DX: K51.00 Ulcerative (chronic) pancolitis without complications (principal); E86.0 Dehydration; E87.1 Hypo-osmolality and hyponatremia; I12.9 Hypertensive chronic kidney disease with stage 1 through stage 4 chronic kidney disease, or unspecified chronic kidney disease; N18.3 Chronic kidney disease, stage 3 (moderate); B34.9 Viral infection, unspecified; K92.1 Melena
CPT/HCPCS: 36415; 71046; 74177; 80053; 80305; 81001; 82272; 83605; 84443; 85014; 85018; 85025; 87015; 87040; 87045; 87046; 87081; 87086; 87324; 87430; 87804; 87899; 88305; 90686; 96360; 96361; 96374; 96376; 99284; A9270-GY; G0378; J2405; J2704; J2930; J3480; J7030; J7042; J7050; Q9967